=== PATIENT | female | born 1970 | race African-American/Black ===

== ENCOUNTER 2018-02-12 17:38 | Emergency (ER) | payer MEDICAID ==
[~2018-02-12] VITALS: Ht 162.6 cm; Wt 70.0 kg
[2018-02-12] MEDS ORDERED: LISI2.5T47 PO (17:46)
[2018-02-12] MEDS ORDERED: HYDR12.529 PO (17:46)
[2018-02-12] MEDS ORDERED: ONDANSETRON HCL 4MG/2ML INJ IV STA (18:30)
[2018-02-12] MEDS ORDERED: SODIUM CHLORIDE 0.9% 1,000 ML IV ONE (18:30)
[2018-02-12] MEDS ORDERED: CLONIDINE 0.1MG TABLET PO ONE (19:15)
[2018-02-12 19:57] LABS: BASOPHILS % 0.6 % (0.0-2.0); HEMATOCRIT. 38.2 % (36.0-48.0); HEMOGLOBIN. 12.5 g/dL (12.0-16.0); LYMPHOCYTES % 10.1 % (20.0-50.0); MEAN CORPUSCULAR HEMOGLOBIN 30.8 pg (28.0-32.0); MEAN PLATELET VOLUME 8.9 fl (7.4-10.4); NEUTROPHILS % 87.3 % (40.0-76.0); PLATELET 244 x1000/uL (130-400); RED BLOOD CELL COUNT 4.07 mill/uL (4.2-5.4)
[2018-02-12 20:07] LABS: CHLORIDE 109 mEq/L (98-107)
[2018-02-12] MEDS ORDERED: ONDANSETRON 4MG ODT PO ONE (21:15)
[2018-02-12 22:15] VITALS: BP 165/100
== END 2018-02-12 22:15 | disposition home or self-care (01) ==
LOC: ER 17:38
DX: I16.0 Hypertensive urgency (principal); Z88.6 Allergy status to analgesic agent; N39.0 Urinary tract infection, site not specified
CPT/HCPCS: 36415; 80053; 81025; 85025; 96361; 96374; 99284; J2405; J7030; Q0162